=== PATIENT | female | born 1990 | race Caucasian/White ===

== ENCOUNTER 2017-10-07 15:29 | Emergency (ER) | payer SELFPAY ==
[~2017-10-07] VITALS: Ht 165.1 cm; Wt 53.5 kg
[~2017-10-07 15:29] MED LIST: PREN-96 PO
[2017-10-07 15:52] VITALS: BP 125/78
== END 2017-10-07 16:46 | disposition home or self-care (01) ==
LOC: ER 15:29
DX: N76.0 Acute vaginitis (principal); Z79.899 Other long term (current) drug therapy

== ENCOUNTER 2019-07-19 23:30 | Emergency (ER) | payer MEDICAID ==
[~2019-07-19] VITALS: Ht 167.6 cm; Wt 58.7 kg
[2019-07-20 00:27] LABS: Urine Bacteria FEW /hpf (None Seen); Urine Blood Negative /uL (Negative); Urine Mucus FEW (None Seen); Urine WBC 8 /hpf (0 - 5)
[2019-07-20 00:45] LABS: Amphetamine Screen, Urine POSITIVE (NEGATIVE); Barbiturate Scree,Urine NEGATIVE (NEGATIVE); Benzodiazephine Screen, Urine NEGATIVE (NEGATIVE); Cannabinoid Screen, Urine NEGATIVE (NEGATIVE); Cocaine Screen, Urine NEGATIVE (NEGATIVE); Opiate Scree,Urine POSITIVE (NEGATIVE); Phencyclidine Screen, Urine NEGATIVE (NEGATIVE)
[2019-07-20 01:10] LABS: Basophils # (auto) 0.1 uL; Basophils % (auto) 0.4 % (0.0-2.0); Eosinophils # (auto) 0.1 uL; Eosinophils % (auto) 0.6 % (0.0-7.0); Hematocrit 34.1 % (36.0-46.0); Hemoglobin 10.8 g/dL (12.2-16.2); Lymphocytes # (auto) 0.8 uL; Lymphocytes % (auto) 5.1 % (10.0-50.0); Mean Corpuscular Hemoglobin 23.8 pg (28.0-32.0); Mean Corpuscular Hgb Conc. 31.6 g/dL (32.0-36.0); Mean Corpuscular Volume 75.2 fL (80.0-100.0); Monocytes # (auto) 0.9 uL; Monocytes % (auto) 5.4 % (0.0-12.0); Neutrophils # (auto) 14.4 uL; Neutrophils % (auto) 88.5 % (37.0-80.0); Platelet Count (auto) 440 10^3/uL (140-450); Red Blood Cells 4.54 10^6/uL (4.0-5.20); Red Cell Distribution Width 16.1 % (11.8-14.3); White Blood Cell 16.3 10^3/uL (4.4-10.8)
[2019-07-20] MEDS ORDERED: VANCOMYCIN 1GM/250ML 250 ML IV ONE (01:15)
[2019-07-20] MEDS ORDERED: PIPERACILLIN-TAZOB 3.375GM 100 ML IV ONE (01:15)
[2019-07-20 01:28] LABS: Albumin 2.7 g/dL (3.4-5.0); BUN/Creatinine Ratio 7.8; Calcium 8.4 mg/dL (8.5-10.1); Potassium 3.9 mmol/L (3.5-5.1); Salicylate < 1.7 mg/dL (2.8-20.0)
[2019-07-20 01:31] LABS: Bilirubin, Total 0.2 mg/dL (0.2-1.0); Total Protein 8.2 g/dL (6.4-8.2)
[2019-07-20 01:32] LABS: Acetaminophen < 2.0 ug/mL (10-30)
[2019-07-20] MEDS ORDERED: CLINDAMYCIN 900MG IV 50 ML IV ONE (04:15)
[2019-07-20] MEDS ORDERED: CLINDAMYCIN HCL 150 MG CAP PO ONE (04:45)
[2019-07-20 04:48] VITALS: BP 124/53
== END 2019-07-20 05:13 | disposition short-term general hospital (02) ==
LOC: ER 23:32
DX: L02.414 Cutaneous abscess of left upper limb (principal); L02.413 Cutaneous abscess of right upper limb; L03.113 Cellulitis of right upper limb; L03.114 Cellulitis of left upper limb; M72.6 Necrotizing fasciitis; M79.A12 Nontraumatic compartment syndrome of left upper extremity; M79.A11 Nontraumatic compartment syndrome of right upper extremity; F17.210 Nicotine dependence, cigarettes, uncomplicated; Z79.899 Other long term (current) drug therapy
CPT/HCPCS: 36415; 73200; 80053; 80307; 80329; 81001; 81025; 82550; 83605; 84702; 85025; 87040; 96365; 99285; J2543; J3370; J3490

== ENCOUNTER 2019-09-26 20:06 | Inpatient (IN) | payer MEDICAID ==
[~2019-09-26] VITALS: Ht 170.2 cm; Wt 59.9 kg
[2019-09-26] MEDS ORDERED: VANCOMYCIN 1GM/250ML 250 ML IV ONE (20:45)
[2019-09-26 21:20] LABS: Basophils # (auto) 0 10 ^3/uL (0-0.2); Basophils % (auto) 0.5 % (0.0-2.0); Lymphocytes # (auto) 0.4 10 ^3/uL (0.4-5.4); Monocytes # (auto) 0.5 10 ^3/uL (0-1.3); Neutrophils # (auto) 3.7 10 ^3/uL (1.6-8.6); Neutrophils % (auto) 77.4 % (37.0-80.0); White Blood Cell 4.8 10^3/uL (4.4-10.8)
[2019-09-26 21:22] LABS: Eosinophils # (auto) 0.1 10 ^3/uL (0-0.8); Eosinophils % (auto) 3.1 % (0.0-7.0); Hematocrit 31.5 % (36.0-46.0); Lymphocytes % (auto) 8.6 % (10.0-50.0); Mean Corpuscular Hgb Conc. 31.8 g/dL (32.0-36.0); Mean Corpuscular Volume 72.5 fL (80.0-100.0); Monocytes % (auto) 10.4 % (0.0-12.0); Platelet Count (auto) 352 10^3/uL (140-450); Red Blood Cells 4.35 10^6/uL (4.0-5.20); Red Cell Distribution Width 16.3 % (11.8-14.3)
[2019-09-26 21:28] LABS: Urine Bacteria MANY /hpf (None Seen); Urine Blood Negative /uL (Negative); Urine Mucus FEW (None Seen); Urine Specific Gravity 1.022 (1.001-1.035); Urine WBC 54 /hpf (0 - 5)
[2019-09-26 21:34] LABS: INR 1.14 (0.9-1.15)
[2019-09-26 21:42] LABS: Albumin 2.8 g/dL (3.4-5.0); Potassium 3.6 mmol/L (3.5-5.1)
[2019-09-26 21:44] LABS: Amphetamine Screen, Urine POSITIVE (NEGATIVE); Barbiturate Scree,Urine NEGATIVE (NEGATIVE); Benzodiazephine Screen, Urine NEGATIVE (NEGATIVE); Cannabinoid Screen, Urine NEGATIVE (NEGATIVE); Cocaine Screen, Urine NEGATIVE (NEGATIVE); Opiate Scree,Urine POSITIVE (NEGATIVE); Phencyclidine Screen, Urine NEGATIVE (NEGATIVE)
[2019-09-26 21:45] LABS: BUN/Creatinine Ratio 16.9; Bilirubin, Total 0.2 mg/dL (0.2-1.0); Total Protein 7.3 g/dL (6.4-8.2)
[2019-09-27] MEDS ORDERED: SODIUM CHLORIDE 0.9% 1,000 ML IV SCH (03:02)
[2019-09-27] MEDS ORDERED: TEMAZEPAM 15 MG CAP PO PRN (03:15)
[2019-09-27] MEDS ORDERED: VANCOMYCIN PER PHARMACY 0 MG IV SCH (03:15)
[2019-09-27] MEDS ORDERED: HYDROcodone-ACET 5/325MG TAB PO PRN (03:15)
[2019-09-27] MEDS ORDERED: ONDANSETRON HCL 4 MG/2 ML VIAL IV PRN (03:15)
[2019-09-27] MEDS ORDERED: DOCUSATE SOD 100 MG CAP PO PRN (03:15)
[2019-09-27] MEDS ORDERED: LORazepam 0.5 MG TAB PO PRN (03:15)
[2019-09-27] MEDS ORDERED: MORPHINE SULFATE 4 MG/ML SYR/VIAL IV PRN (03:15)
[2019-09-27] MEDS ORDERED: ACETAMINOPHEN 325 MG TAB PO PRN (03:15)
[2019-09-27] MEDS ORDERED: cefTRIAXone 1GM/50ML D5W 50 ML IV SCH (04:00)
[2019-09-27 04:32] VITALS: BP 116/64
--- NOTE | 2019-09-27 04:40 | NUR ---
Wound pictures taken of her right arm. Wound consult put in.
[2019-09-27 05:00] VITALS: BP 116/64
--- NOTE | 2019-09-27 06:53 | NUR ---
[facility] admit from [facility] admitted to [facility] after SBAR received. Patient oriented to Norma noel RN, unit, room, bed, and unit policies regarding patient care and visiting hours. Patient weighed by bedscale and encouraged to call if they need something. All questions and concerns addressed, patient verbalized understanding. Patient in the lowest possible position with bed rails up x2 and call light within reach. Patient does not complain of pain. Will continue to monitor patient. Addendum: 09/27/19 at 0654 by Norma Mckinley RN came up at [id number]
--- NOTE | 2019-09-27 06:54 | NUR ---
Closing note. Patient asleep, does not complain of pain. Will endorse to day shift RN.
--- NOTE | 2019-09-27 07:00 | NUR ---
Opening Shift Note: Assumed care of patient. Patient asleep at this time. No S/S of distress/SOB or pain. Bed in lowest locked position, side rails up x 2, call light within reach. Patient to be instructed on POC and to call for assist PRN, will continue to monitor for changes Q1hr and PRN.
[2019-09-27 07:52] LABS: Basophils # (auto) 0 10 ^3/uL (0-0.2); Eosinophils # (auto) 0.1 10 ^3/uL (0-0.8); Eosinophils % (auto) 2.3 % (0.0-7.0); Lymphocytes # (auto) 0.4 10 ^3/uL (0.4-5.4); Monocytes # (auto) 0.5 10 ^3/uL (0-1.3); White Blood Cell 5.8 10^3/uL (4.4-10.8)
[2019-09-27 07:54] LABS: Basophils % (auto) 0.4 % (0.0-2.0); Hematocrit 36.1 % (36.0-46.0); Hemoglobin 11.4 g/dL (12.2-16.2); Lymphocytes % (auto) 6.5 % (10.0-50.0); Mean Corpuscular Hemoglobin 23.1 pg (28.0-32.0); Mean Corpuscular Hgb Conc. 31.5 g/dL (32.0-36.0); Mean Corpuscular Volume 73.1 fL (80.0-100.0); Monocytes % (auto) 8.7 % (0.0-12.0); Neutrophils # (auto) 4.7 10 ^3/uL (1.6-8.6); Neutrophils % (auto) 82.1 % (37.0-80.0); Platelet Count (auto) 392 10^3/uL (140-450); Red Blood Cells 4.93 10^6/uL (4.0-5.20); Red Cell Distribution Width 16.4 % (11.8-14.3)
[2019-09-27 08:08] LABS: BUN/Creatinine Ratio 16.9; Calcium 7.9 mg/dL (8.5-10.1); Potassium 3.9 mmol/L (3.5-5.1)
[2019-09-27 09:00] VITALS: BP 105/58
[2019-09-27] MEDS ORDERED: VANCOMYCIN 1GM/250ML 250 ML IV SCH (09:00)
--- NOTE | 2019-09-27 11:05 | NUR ---
WOUND CARE NOTE: Wound care in to see patient per wound care request regarding "Abscess on right arm..." that are noted present on admission. Bedside nurse took photograph of patient's wounds upon admission for reference. Patient is 29 years old female with admitting diagnosis of Abscess, UTI Pos for Multiple Substance Abuse. Patient is resting in bed in Rm. 284A. Patient is awake, alert and oriented. She's in no stated pain at this time. She's ambulatory and self turning and repositioning. Her Remy score is 23. Noted patient's Rt forearm has multiple scarring, scabbed lesions, mild indurated areas. On reports, patient came in with abscess on Rt forearm, with history of IV drug use. Patient reported that she has history of Rt. forearm abscess which "lanced and drain at [facility] few months ago". No open draining wound noted at this time, other than multi intact scabbed, red, indurated lesions,area is clean and dry, left open to air. Patient has pending surgical consult no further wound care monitoring needed at this time. Patient tolerated well and denies any other wound. No further wound care monitoring needed at this time. RECOMMENDATION: Will defer dressing change order to surgeon in case of surgical intervention.
--- NOTE | 2019-09-27 11:25 | NUR ---
IV removal: IV DC'd with clean sterile technique, catheter fully intact. Pressure dressing applied to site. Patient tolerated well.
--- NOTE | 2019-09-27 11:29 | NUR ---
AMA Note [facility] states they want to leave the hospital Against Medical Advice (AMA). Patient encouraged to stay for further treatment/stabilization. Kenrick Erwin MD notified of patient's wishes. Patient advised of the risks and benefits of leaving AMA. Patient verbalized understanding. Patient encouraged to return to the ER if symptoms do not improve or worsen.
== END 2019-09-27 11:32 | disposition left against medical advice (07) | DRG 383 ==
LOC: ER 20:07 → WEST WING 09-27 03:37
PROVIDERS: ADMIT Hospitalist; ATTEND Hospitalist
DX: L03.113 Cellulitis of right upper limb (principal); F17.210 Nicotine dependence, cigarettes, uncomplicated; Z53.29 Procedure and treatment not carried out because of patient's decision for other reasons; F19.10 Other psychoactive substance abuse, uncomplicated; N39.0 Urinary tract infection, site not specified; L02.413 Cutaneous abscess of right upper limb; Z79.899 Other long term (current) drug therapy
CPT/HCPCS: 36415; 71045; 80048; 80053; 80202; 80307; 81001; 84702; 85025; 85610; 87040; 87086; 87088; 87186; 93970; 96361; 96365; 96367; G0378; J0696

== ENCOUNTER 2020-10-28 04:23 | Emergency (ER) | payer MEDICAID ==
[~2020-10-28] VITALS: Ht 170.2 cm; Wt 68.0 kg
[2020-10-28 05:29] LABS: Urine Amorphous Crystal FEW /hpf (None Seen); Urine Bacteria NONE SEEN /hpf (None Seen); Urine Blood Negative /uL (Negative); Urine Specific Gravity 1.027 (1.001-1.035); Urine WBC 3 /hpf (0 - 5)
[2020-10-28 06:30] VITALS: BP 109/64
[2020-10-28 07:29] LABS: Basophils # (auto) 0 10 ^3/uL (0-0.2); Hemoglobin 9.5 g/dL (12.2-16.2); Neutrophils # (auto) 4.8 10 ^3/uL (1.6-8.6); White Blood Cell 5.7 10^3/uL (4.4-10.8)
[2020-10-28 07:30] LABS: Basophils % (auto) 0.5 % (0.0-2.0); Eosinophils # (auto) 0 10 ^3/uL (0-0.8); Eosinophils % (auto) 0.8 % (0.0-7.0); Hematocrit 29.9 % (36.0-46.0); Lymphocytes # (auto) 0.3 10 ^3/uL (0.4-5.4); Lymphocytes % (auto) 5.4 % (10.0-50.0); Mean Corpuscular Hgb Conc. 31.6 g/dL (32.0-36.0); Mean Corpuscular Volume 63.2 fL (80.0-100.0); Monocytes # (auto) 0.5 10 ^3/uL (0-1.3); Monocytes % (auto) 9.3 % (0.0-12.0); Nucleated Red Blood Cells % 0.1 %; Platelet Count (auto) 450 10^3/uL (140-450); Red Blood Cells 4.74 10^6/uL (4.0-5.20); Red Cell Distribution Width 19.2 % (11.8-14.3)
== END 2020-10-28 08:00 | disposition left against medical advice (07) ==
LOC: ER 04:23
DX: M54.2 Cervicalgia (principal); F41.9 Anxiety disorder, unspecified; F17.210 Nicotine dependence, cigarettes, uncomplicated; F15.10 Other stimulant abuse, uncomplicated; F14.10 Cocaine abuse, uncomplicated
CPT/HCPCS: 36415; 81001; 85025; 93005